=== PATIENT | female | born 1995 | race Caucasian/White ===

== ENCOUNTER 2019-01-15 23:01 | Emergency (ER) | payer OTHER ==
[~2019-01-15] VITALS: Ht 154.9 cm; Wt 84.0 kg
[2019-01-16 01:00] VITALS: BP 132/89
== END 2019-01-16 01:08 | disposition home or self-care (01) | DRG 103 ==
LOC: ED 23:01
DX: R51 Headache (principal); R42 Dizziness and giddiness; V89.2XXA Person injured in unspecified motor-vehicle accident, traffic, initial encounter